=== PATIENT | female | born 1950 | race Caucasian/White ===

== ENCOUNTER 2017-03-31 20:57 | Inpatient (IN) | payer OTHER ==
--- NOTE | 2017-03-31 21:54 | CP.PCM.HP ---
History of Present Illness - History of Present Illness History of Present Illness: CC: Recovery after lap lynda and continuation of IV abx for UTI/ESBL HPI: This is a 67 y/o female with DM2, HTN, HLD and Parkinsons's disease who came to [facility] for abdominal pain. She was found to have what appears to be gallstone pancreatitis and is now s/p Lap Lynda (03/30). She was also found to have UTI with both ESBL E coli and Enterococcus for which she will need 5 more days abx. Currently patient is without acute c/c. Neurologist: Kd Cardiology: Kritsopher Surgery: Antonio ROS: 14 point ROS negative other than HPI MHx: DM2, HTN, HLD, and Parkinson's SHx: Hysterectomy, bladder lift, ?intracranial surgery, cataracts Allergies: NKDA Medications: As per med rec Family Hx: M- cardiac issues, F- cardiac issues Social Hx: Lives with family, no EtOH, no tobacco Surrogate: Present on Admission - Present on Admission Any Indicators Present on Admission: No Past Patient History - Infectious Disease Hx of Infectious Diseases: None - Past Medical History & Family History Past Medical History?: Yes - Past Social History Smoking Status: Never Smoked - CARDIAC Hx Hypercholesterolemia: Yes Hx Hypertension: Yes - PULMONARY Hx Asthma: Yes - NEUROLOGICAL Hx Parkinson's Disease: Yes - HEENT Hx HEENT Problems: No - RENAL Hx Chronic Kidney Disease: No - ENDOCRINE/METABOLIC Hx Diabetes Mellitus Type 2: Yes - HEMATOLOGICAL/ONCOLOGICAL Hx Blood Disorders: No - INTEGUMENTARY Hx Dermatological Problems: No - MUSCULOSKELETAL/RHEUMATOLOGICAL Hx Musculoskeletal Disorders: Yes Hx Falls: Yes Other/Comment: NEURALGIA - GASTROINTESTINAL Hx Gastrointestinal Disorders: No - GENITOURINARY/GYNECOLOGICAL Hx Genitourinary Disorders: No - PSYCHIATRIC Hx Anxiety: Yes Hx Substance Use: No - SURGICAL HISTORY Hx Surgeries: Yes Hx Hysterectomy: Yes Other/Comment: brain surgery. eye surgery. bladder lift surgery - ANESTHESIA Hx Anesthesia: Yes Hx Anesthesia Reactions: No Meds Allergies/Adverse Reactions: Allergies Allergy/AdvReac Type Severity Reaction Status Date / Time No Known Allergies Allergy Verified 03/23/17 16:10 Physical Exam - Constitutional Appears: No Acute Distress - Head Exam Head Exam: ATRAUMATIC, NORMOCEPHALIC - Eye Exam Eye Exam: EOMI, PERRL - ENT Exam ENT Exam: Mucous Membranes Moist - Neck Exam Neck exam: Positive for: Full Rom - Respiratory Exam Respiratory Exam: Clear to Auscultation Bilateral, NORMAL BREATHING PATTERN - Cardiovascular Exam Cardiovascular Exam: REGULAR RHYTHM, +S1, +S2 - GI/Abdominal Exam GI & Abdominal Exam: Normal Bowel Sounds, Soft, Tenderness - Extremities Exam Extremities exam: Positive for: full ROM, normal inspection - Neurological Exam Neurological exam: Alert, CN II-XII Intact, Oriented x3 - Psychiatric Exam Psychiatric exam: Normal Affect, Normal Mood - Skin Skin Exam: Dry, Warm Assessment & Plan (1) S/P laparoscopic cholecystectomy Assessment and Plan: 67 y/o female with multiple med conditions s/p lap lynda and requiring multiple abx for complicated UTI. 1) s/p L-C -- routine post-op care, pain control 2) UTI with ESBL E coli and enterococcus -Cont Merrem 500 IV q8h and Ampicillin 500 IV q6h for 5 more days per ID 3) DM2 -Resume home DM2 medications if consistently tolerating PO -SSI, accuchecks -DM2 diet 4) HTN -- home medications 5) DVT PPx -- SCDs for now, SQ lovenox possibly tmrw after labs Status: Acute (2) UTI (urinary tract infection) Status: Acute (3) DM2 (diabetes mellitus, type 2) Status: Acute (4) DVT prophylaxis Status: Acute (5) Hypertension Status: Acute
[2017-03-31 22:56] VITALS: BMI 37.0
[2017-04-01] MEDS: Meropenem 500 MG in Sodium Chloride 0.9% 100 ML IVPB SCH ×3 (00:11→16:10)
[2017-04-01] MEDS ORDERED: Patient's Own Med (Meropenem [Merrem Iv] 500 MG) IVPB SCH (01:00)
[2017-04-01 01:04] VITALS: RESP 20
[2017-04-01] MEDS: Insulin Lispro (humaLOG) 100 Units/ml Inj SC SCH ×4 (07:05→21:47)
[2017-04-01 07:54] LABS: HEMOGLOBIN 10.5 g/dL (12.0-16.0); MEAN CELL VOLUME 92.9 fl (81.0-99.0); MEAN CORPUSCULAR HEMOGLOBIN 31.2 pg (27.0-31.0); MEAN CORPUSCULAR HGB CONC 33.5 g/dL (33.0-37.0); RBC 3.37 Mil/uL (3.80-5.20); RED CELL DISTRIBUTION WIDTH 14.3 % (11.5-14.5); WHITE BLOOD COUNT 6.5 K/uL (4.8-10.8)
[2017-04-01 08:08] LABS: ALBUMIN 3.2 g/dL (3.5-5.0); ALT/SGPT 41 U/L (9-52); AST/SGOT 22 U/L (14-36); BLOOD UREA NITROGEN 6 mg/dl (7-17); CALCIUM 8.2 mg/dL (8.4-10.2); GFR AFRICAN-AMERICAN > 60; GFR NON-AFRICAN AMERICAN > 60
[2017-04-01] MEDS ORDERED: Patient's Own Med (Brimonidine Tartrate/Timolol [Combigan 0.2%-0.5% Eye Drops] 1 DROP) OU SCH (09:00)
[2017-04-01] MEDS: Brimonidine 0.2% 50 DROP/5 ML BOTTLE OU SCH ×3 (10:04→16:14)
[2017-04-01] MEDS: Metoprolol Succinate 25 mg XL Tab PO SCH (10:11)
--- NOTE | 2017-04-01 11:17 | RAD ---
PROCEDURE: CHEST RADIOGRAPH, 1 VIEW HISTORY: refused ppd no recent cxr done COMPARISON: None available. FINDINGS: LUNGS: Clear. PLEURA: No pneumothorax or pleural fluid seen. CARDIOVASCULAR: Normal. OSSEOUS STRUCTURES: No significant abnormalities. VISUALIZED UPPER ABDOMEN: Normal. OTHER FINDINGS: None. IMPRESSION: No active disease.
[2017-04-01] MEDS: Magnesium Hydroxide Susp 30 ml UD PO PRN (16:12)
[2017-04-02] MEDS: Insulin Lispro (humaLOG) 100 Units/ml Inj SC SCH ×3 (06:34→17:00)
[2017-04-02] MEDS: Brimonidine 0.2% 50 DROP/5 ML BOTTLE OU SCH ×3 (08:53→16:59)
[2017-04-02] MEDS: Metoprolol Succinate 25 mg XL Tab PO SCH (08:54)
[2017-04-02] MEDS: Meropenem 500 MG in Sodium Chloride 0.9% 100 ML IVPB SCH ×2 (08:57→16:57)
[2017-04-02] MEDS: Omega-3-Acid Ethyl Esters 1 GM Cap PO SCH (16:58)
[2017-04-03] MEDS: Insulin Lispro (humaLOG) 100 Units/ml Inj SC SCH ×4 (00:03→16:51)
[2017-04-03] MEDS: Meropenem 500 MG in Sodium Chloride 0.9% 100 ML IVPB SCH ×4 (00:47→22:11)
[2017-04-03] MEDS: Metoprolol Succinate 25 mg XL Tab PO SCH (08:58)
[2017-04-03] MEDS: Omega-3-Acid Ethyl Esters 1 GM Cap PO SCH ×2 (08:58→16:51)
[2017-04-03] MEDS: GlipiZIDE 2.5 mg SR Tab PO SCH (08:59)
[2017-04-03] MEDS: Brimonidine 0.2% 50 DROP/5 ML BOTTLE OU SCH ×3 (09:00→16:50)
--- NOTE | 2017-04-03 13:20 | CP.PCM.CON ---
History of Present Illness - History of Present Illness History of Present Illness: 67 y/o female with DM2, HTN, HLD and Parkinsons's disease who came to [facility] for abdominal pain. She was found to have what appears to be gallstone pancreatitis and is now s/p Lap Martha (03/30). She was also found to have UTI with both ESBL E coli and Enterococcus for which she will need 5 more days abx. Currently patient is without acute c/c. ROS: 14 point ROS negative other than HPI MHx: DM2, HTN, HLD, and Parkinson's SHx: Hysterectomy, bladder lift, ?intracranial surgery, cataracts Allergies: NKDA Medications: As per med rec Family Hx: M- cardiac issues, F- cardiac issues Social Hx: Lives with family, no EtOH, no tobacco Review of Systems - Constitutional Constitutional: As Per HPI - EENT Eyes: absent: As Per HPI, Blind Spots, Blurred Vision, Change in Vision, Decreased Night Vision, Diplopia, Discharge, Dry Eye, Exophthalmos, Floaters, Irritation, Itchy Eyes, Loss of Peripheral Vision, Pain, Photophobia, Requires Corrective Lenses, Sees Flashes, Spots in Vision, Tunnel Vision, Other Visual Disturbances, Loss of Vision, Other Ears: absent: As Per HPI, Decreased Hearing, Ear Discharge, Ear Pain, Tinnitus, Abnormal Hearing, Disequilibrium, Dizziness, Other Nose/Mouth/Throat: absent: As Per HPI, Epistaxis, Nasal Congestion, Nasal Discharge, Nasal Obstruction, Nasal Trauma, Nose Pain, Post Nasal Drip, Sinus Pain, Sinus Pressure, Bleeding Gums, Change in Voice, Dental Pain, Dry Mouth, Dysphagia, Halitosis, Hoarsness, Lip Swelling, Mouth Lesions, Mouth Pain, Odynophagia, Sore Throat, Throat Swelling, Tongue Swelling, Facial Pain, Neck Pain, Neck Mass, Other - Breasts Breasts: absent: As Per HPI, Change in Shape, Mass, Pain, Nipple Discharge, Nipple Inversion, Skin Changes, Swelling, Other - Cardiovascular Cardiovascular: absent: As Per HPI, Acrocyanosis, Chest Pain, Chest Pain at Rest , Chest Pain with Activity, Claudication, Diaphoresis, Dyspnea, Dyspnea on Exertion, Edema, Irregular Heart Rhythm, Pain Radiating to Arm/Neck/Jaw, Leg Edema, Leg Ulcers, Lightheadedness, Orthopnea, Palpitations, Paroxysmal Nocturnal Dyspnea, Pedal Edema, Radiating Pain, Rapid Heart Rate, Slow Heart Rate, Syncope, Other - Respiratory Respiratory: absent: As Per HPI, Cough, Dyspnea, Hemoptysis, Dyspnea on Exertion , Wheezing, Snoring, Stridor, Pain on Inspiration, Chest Congestion, Excessive Mucous Production, Change in Mucous Color, Pain with Coughing, Other - Gastrointestinal Gastrointestinal: As Per HPI - Genitourinary Genitourinary: absent: As Per HPI, Change in Urinary Stream, Difficulty Urinating, Dysuria, Flank Pain, Hematuria, Pyuria, Nocturia, Urinary Incontinence, Urinary Frequency, Urinary Hesitance, Urinary Urgency, Voiding Freq/Small Amts, Freq UTI, Hx Renal/Bladder Calculi, Hx /Renal Surgery, Bladder Distension, Other - Reproductive: Female Reproductive:Female: absent: As Per HPI, Amenorrhea, Amenorrhea/ Control, Currently Menstual, Cycle <21 Days, Cycle >35 Days, Cycle Variable, Menses 1-7 Days, Menses >/= 8 Days, Menses Variable, Cycle > 4 Weeks Between, No Menses for 6 Months, Heavy Menses, Light Menses, Normal Menses, Spotting Between Cycles , S/P Hysterectomy, Menopausal, Post Menopausal, Premenarche, Abnormal Vaginal Bleeding, Dysmenorrhea, Dyspareunia, Genital Lesions, Genital Pruritis, Pelvic Pain, Prolapse Symptoms, Sexual Dysfunction, Vaginal Discharge, Vaginal Dryness , Vaginal Odor, Vaginal Pruritis, Other - Menstruation Menstruation: absent: As Per HPI, Amenorrhea, Amenorrhea/ Control, Currently Menstual, Cycle <21 Days, Cycle >35 Days, Cycle Variable, Menses 1-7 Days, Menses >/= 8 Days, Menses Variable, Cycle > 4 Weeks Between, No Menses for 6 Months, Heavy Menses, Light Menses, Normal Menses, Spotting Between Cycles , S/P Hysterectomy, Menopausal, Post Menopausal, Premenarche, Abnormal Vaginal Bleeding, Dysmenorrhea, Other - Musculoskeletal Musculoskeletal: absent: As Per HPI, Abnormal Gait, Arthralgias, Atrophy, Back Pain, Deformity, Joint Swelling, Limited Range of Motion, Loss of Height, Muscle Cramps, Muscle Weakness, Myalgias, Neck Pain, Numbness, Radiating Pain into Limb, Stiffness, Tingling, Other - Integumentary Integumentary: absent: As Per HPI, Acne, Alopecia, Bleeding Lesions, Change in Hair, Change in Nails, Change in Pigmentation, Changing Lesions, Dry Skin, Erythema, Furuncle, Hirsutism, Lesions, New Lesions, Non-Healing Lesions, Photosensitivity, Pruritus, Rash, Skin Pain, Skin Ulcer, Sores, Striae, Swelling , Unusual Bruising, Wounds, Jaundice, Other - Neurological Neurological: absent: As Per HPI, Abnormal Gait, Abnormal Hearing, Abnormal Movements, Abnormal Speech, Behavioral Changes, Burning Sensations, Confusion, Convulsions, Disequilibrium, Dizziness, Numbness, Focal Weakness, Frequent Falls , Headaches, Lack of Coordination, Loss of Vision, Memory Loss, Paresthesias, Radicular Pain, Restless Legs, Sensory Deficit, Syncope, Tingling, Tremor, Vertigo, Weakness, Other Visual Disturbances, Other - Psychiatric Psychiatric: absent: As Per HPI, Abnormal Sleep Pattern, Anhedonia, Anxiety, Auditory Hallucinations, Behavioral Changes, Change in Appetite, Change in Libido, Confusion, Depression, Difficulty Concentrating, Hallucinations, Homicidal Ideation, Hopelessness, Irritability, Memory Loss, Mood Swings, Panic Attacks, Paranoia, Suicidal Ideation, Visual Hallucinations, Tactile Hallucinations, Other - Endocrine Endocrine: absent: As Per HPI, Change in Body Appearance, Change in Libido, Cold Intolorance, Deepening of Voice, Excessive Sweating, Fatigue, Flushing, Heat Intolorance, Increase in Ring/Shoe/Hat Size, Palpitations, Polydipsia, Polyphagia, Polyuria, Other Past Patient History - Infectious Disease Hx of Infectious Diseases: None - Past Medical History & Family History Past Medical History?: Yes - Past Social History Smoking Status: Never Smoked - CARDIAC Hx Hypercholesterolemia: Yes Hx Hypertension: Yes - PULMONARY Hx Asthma: Yes - NEUROLOGICAL Hx Parkinson's Disease: Yes - HEENT Hx HEENT Problems: No - RENAL Hx Chronic Kidney Disease: No - ENDOCRINE/METABOLIC Hx Diabetes Mellitus Type 2: Yes - HEMATOLOGICAL/ONCOLOGICAL Hx Blood Disorders: No - INTEGUMENTARY Hx Dermatological Problems: No - MUSCULOSKELETAL/RHEUMATOLOGICAL Hx Musculoskeletal Disorders: Yes Hx Falls: Yes (4 years ago) Other/Comment: NEURALGIA - GASTROINTESTINAL Hx Gastrointestinal Disorders: No Hx Constipation: Yes Hx Pancreatitis: Yes - GENITOURINARY/GYNECOLOGICAL Hx Genitourinary Disorders: No - PSYCHIATRIC Hx Anxiety: Yes Hx Substance Use: No - SURGICAL HISTORY Hx Surgeries: Yes Hx Cholecystectomy: Yes (03/30/17 lap martha) Hx Hysterectomy: Yes Other/Comment: brain surgery. eye surgery. bladder lift surgery - ANESTHESIA Hx Anesthesia: Yes Hx Anesthesia Reactions: No Meds Allergies/Adverse Reactions: Allergies Allergy/AdvReac Type Severity Reaction Status Date / Time No Known Allergies Allergy Verified 03/23/17 16:10 - Medications Medications: Current Medications Acetaminophen (Tylenol 325mg Tab) 650 mg PO Q6 PRN PRN Reason: Pain, Mild (1-3) Last Admin: 04/01/17 00:16 Dose: 650 mg Amlodipine Besylate (Norvasc) 5 mg PO DAILY [facility] Last Admin: 04/03/17 08:57 Dose: 5 mg Aspirin (Ecotrin) 81 mg PO DAILY [facility] Last Admin: 04/03/17 08:58 Dose: 81 mg Atorvastatin Calcium (Lipitor) 20 mg PO HS [facility] Last Admin: 04/02/17 21:53 Dose: 20 mg Brimonidine Tartrate (Alphagan 0.2% Opht) 1 drop OU TID [facility] Last Admin: 04/03/17 12:26 Dose: 1 drop Carbamazepine (Tegretol) 200 mg PO TIDAC [facility] Last Admin: 04/03/17 12:23 Dose: 200 mg Carbidopa/Levodopa (Sinemet) 1 tab PO HS [facility] Last Admin: 04/02/17 21:53 Dose: 1 tab Glipizide (Glucotrol Xl) 2.5 mg PO DAILY [facility] Last Admin: 04/03/17 08:59 Dose: 2.5 mg Hydrochlorothiazide (Microzide) 12.5 mg PO DAILY [facility] Last Admin: 04/03/17 08:58 Dose: 12.5 mg Ampicillin 500 mg/ Sodium (Chloride) 50 mls @ 100 mls/hr IV Q6H [facility] Last Admin: 04/03/17 05:13 Dose: 100 mls/hr Meropenem 500 mg/ Sodium (Chloride) 100 mls @ 100 mls/hr IVPB Q8@0500,1300, 2100 [facility] Last Admin: 04/03/17 12:25 Dose: 100 mls/hr Insulin Human Lispro (Humalog) 0 units SC ACHS [facility] PRN Reason: Protocol Last Admin: 04/03/17 12:24 Dose: Not Given Lactulose (Enulose) 20 gm PO DAILY PRN PRN Reason: Constipation Magnesium Hydroxide (Milk Of Magnesia) 30 ml PO DAILY PRN PRN Reason: Constipation Last Admin: 04/01/17 16:12 Dose: 30 ml Metoprolol Succinate (Toprol Xl) 25 mg PO DAILY [facility] Last Admin: 04/03/17 08:58 Dose: 25 mg [id number] Ethyl Esters (Lovaza) 1 gm PO BID [facility] Last Admin: 04/03/17 08:58 Dose: 1 gm Physical Exam - Constitutional Appears: Non-toxic, Chronically Ill - Head Exam Head Exam: NORMOCEPHALIC - Eye Exam Eye Exam: PERRL. absent: Scleral icterus - ENT Exam ENT Exam: Mucous Membranes Dry, Normal External Ear Exam - Neck Exam Neck exam: Negative for: Lymphadenopathy - Respiratory Exam Respiratory Exam: Decreased Breath Sounds - Cardiovascular Exam Cardiovascular Exam: REGULAR RHYTHM - GI/Abdominal Exam GI & Abdominal Exam: Diminished Bowel Sounds - Rectal Exam Rectal Exam: Deferred - Exam Exam: NORMAL INSPECTION - Extremities Exam Extremities exam: Negative for: pedal edema - Back Exam Back exam: absent: CVA tenderness (L), CVA tenderness (R) - Neurological Exam Neurological exam: Alert, CN II-XII Intact, Oriented x3, Reflexes Normal - Psychiatric Exam Psychiatric exam: Normal Mood - Skin Skin Exam: Dry, Intact Results - Vital Signs Recent Vital Signs: Last Vital Signs Temp 98.1 F 04/03/17 08:05 Pulse 88 04/03/17 08:05 Resp 20 04/03/17 08:05 BP 139/73 04/03/17 08:58 Pulse Ox 99 04/03/17 08:05 - Labs Result Diagrams: 04/01/17 07:44 04/01/17 07:44 Labs: Laboratory Results - last 24 hr 04/02/17 04/02/17 04/03/17 15:46 18:45 06:33 POC Glucose (mg/dL) 92 113 H 108 04/03/17 11:00 POC Glucose (mg/dL) 100 Assessment & Plan (1) DM2 (diabetes mellitus, type 2) Status: Acute (2) S/P laparoscopic cholecystectomy Status: Acute (3) UTI (urinary tract infection) Status: Acute - Assessment and Plan (Free Text) Assessment: to complete 5 days IV rx for UTI
[2017-04-04] MEDS: Insulin Lispro (humaLOG) 100 Units/ml Inj SC SCH ×5 (00:37→21:25)
[2017-04-04] MEDS: Meropenem 500 MG in Sodium Chloride 0.9% 100 ML IVPB SCH (04:15)
[2017-04-04] MEDS: Brimonidine 0.2% 50 DROP/5 ML BOTTLE OU SCH ×3 (08:24→16:56)
[2017-04-04] MEDS: Omega-3-Acid Ethyl Esters 1 GM Cap PO SCH ×2 (08:25→16:57)
[2017-04-04] MEDS: GlipiZIDE 2.5 mg SR Tab PO SCH (08:25)
[2017-04-04] MEDS: Metoprolol Succinate 25 mg XL Tab PO SCH (08:26)
[2017-04-04] MEDS: Magnesium Hydroxide Susp 30 ml UD PO PRN (14:01)
[2017-04-05] MEDS: Insulin Lispro (humaLOG) 100 Units/ml Inj SC SCH ×2 (06:41→12:27)
[2017-04-05] MEDS: Brimonidine 0.2% 50 DROP/5 ML BOTTLE OU SCH ×2 (08:54→12:27)
[2017-04-05] MEDS: GlipiZIDE 2.5 mg SR Tab PO SCH (08:55)
[2017-04-05] MEDS: Omega-3-Acid Ethyl Esters 1 GM Cap PO SCH (08:55)
[2017-04-05] MEDS: Metoprolol Succinate 25 mg XL Tab PO SCH (08:58)
[2017-04-05 08:59] VITALS: BP 136/80; PULSE 80
[2017-04-05 09:54] VITALS: TEMP 98.1; O2SAT 98
--- NOTE | 2017-04-05 12:20 | CP.PCM.DIS ---
Provider - Provider Date of Admission: 03/31/17 21:16 Attending physician: Aby Wiggins MD Consults: Dr Naranjo Time Spent in preparation of Discharge (in minutes): 25 Diagnosis - Discharge Diagnosis (1) S/P laparoscopic cholecystectomy Status: Acute Comment: POD 7. stable, surgical wound healing well (2) UTI (urinary tract infection) Status: Acute Comment: UTI secondary to ESBL E Coli and Enterococcus. completed 7 days of IV Merrem and Ampicillin. afebrile and asymptomatic (3) DM2 (diabetes mellitus, type 2) Status: Chronic Comment: BS controlled. continue Glucotrol XL 2.5mg PO daily (4) Hypertension Status: Chronic Comment: BP stable. continue Norvasc, HCTZ and Metoprolol XL Hospital Course - Lab Results Lab Results: Most Recent Lab Values WBC 6.5 K/uL (4.8-10.8) 04/01/17 07:44 RBC 3.37 Mil/uL (3.80-5.20) L 04/01/17 07:44 Hgb 10.5 g/dL (12.0-16.0) L 04/01/17 07:44 Hct 31.3 % (34.0-47.0) L 04/01/17 07:44 MCV 92.9 fl (81.0-99.0) 04/01/17 07:44 MCH 31.2 pg (27.0-31.0) H 04/01/17 07:44 MCHC 33.5 g/dL (33.0-37.0) 04/01/17 07:44 RDW 14.3 % (11.5-14.5) 04/01/17 07:44 Plt Count 230 K/uL (130-400) 04/01/17 07:44 Sodium 136 mmol/l (132-148) 04/01/17 07:44 Potassium 3.6 MMOL/L (3.6-5.0) 04/01/17 07:44 Chloride 98 mmol/L (98-107) 04/01/17 07:44 Carbon Dioxide 29 mmol/L (22-30) 04/01/17 07:44 Anion Gap 13 (10-20) 04/01/17 07:44 BUN 6 mg/dl (7-17) L 04/01/17 07:44 Creatinine 0.5 mg/dl (0.7-1.2) L 04/01/17 07:44 Est GFR ( Amer) > 60 04/01/17 07:44 Est GFR (Non-Af Amer) > 60 04/01/17 07:44 POC Glucose (mg/dL) 136 mg/dL (65-110) H 04/05/17 11:06 Random Glucose 103 mg/dL (65-105) 04/01/17 07:44 Calcium 8.2 mg/dL (8.4-10.2) L 04/01/17 07:44 Total Bilirubin 1.3 mg/dl (0.2-1.3) 04/01/17 07:44 AST 22 U/L (14-36) 04/01/17 07:44 ALT 41 U/L (9-52) 04/01/17 07:44 Alkaline Phosphatase 146 U/L (38-126) H 04/01/17 07:44 Total Protein 6.5 G/DL (6.3-8.2) 04/01/17 07:44 Albumin 3.2 g/dL (3.5-5.0) L 04/01/17 07:44 Globulin 3.2 gm/dL (2.2-3.9) 04/01/17 07:44 Albumin/Globulin Ratio 1.0 (1.0-2.1) 04/01/17 07:44 - Hospital Course Hospital Course: 67 yo female with history of DM2, HTN, HLD and Parkinson's Disease had Lap Cholecystectomy on 03/30/17 at [facility] because of Gallstone Pancreatitis. She also came positive for ESBL E Coli and Enterococcus in the urine. She was transferred to TCU in [facility] for continuation of IV Merrem and Ampicillin and completed them in 7 days. She did well and now ready for discharged. Discharge Exam - Head Exam Head Exam: NORMOCEPHALIC - Eye Exam Eye Exam: absent: Scleral icterus - ENT Exam ENT Exam: Mucous Membranes Moist - Respiratory Exam Respiratory Exam: absent: Wheezes, Respiratory Distress - Cardiovascular Exam Cardiovascular Exam: REGULAR RHYTHM, +S1, +S2 - GI/Abdominal Exam GI & Abdominal Exam: Soft. absent: Tenderness - Rectal Exam Rectal Exam: Deferred - Back Exam Back exam: absent: tenderness - Neurological Exam Neurological exam: Alert, Oriented x3 - Psychiatric Exam Psychiatric exam: Normal Affect - Skin Skin Exam: Dry, Intact Discharge Plan - Follow Up Plan Condition: GOOD Disposition: HOME/ ROUTINE Instructions: Urinary Tract Infection in Women (DC), Parkinson Disease (DC), Laparoscopic Cholecystectomy (DC)
== END 2017-04-05 14:53 | disposition home or self-care (01) | DRG 690 ==
LOC: H.TCU 21:16
PROVIDERS: ADMIT Internal Medicine; ATTEND Internal Medicine
PROC: 3E03329 Introduction of Other Anti-infective into Peripheral Vein, Percutaneous Approach (ICD-10-PCS; principal; 2017-03-31)
PROC: F07Z9FZ Gait Training/Functional Ambulation Treatment using Assistive, Adaptive, Supportive or Protective Equipment (ICD-10-PCS; 2017-03-31)
PROC: F08Z4FZ Home Management Treatment using Assistive, Adaptive, Supportive or Protective Equipment (ICD-10-PCS; 2017-03-31)
DX: N39.0 Urinary tract infection, site not specified (principal); G20 Parkinson's disease; B96.20 Unspecified Escherichia coli [E. coli] as the cause of diseases classified elsewhere; B95.2 Enterococcus as the cause of diseases classified elsewhere; E11.9 Type 2 diabetes mellitus without complications; E78.5 Hyperlipidemia, unspecified; I10 Essential (primary) hypertension; Z16.12 Extended spectrum beta lactamase (ESBL) resistance; J45.909 Unspecified asthma, uncomplicated; M79.2 Neuralgia and neuritis, unspecified; Z98.890 Other specified postprocedural states